=== PATIENT | female | born 1955 | race African-American/Black ===

== ENCOUNTER 2016-11-01 14:34 | Inpatient (IN) | payer OTHER ==
[2016-11-01 15:22] VITALS: BMI 16.2
--- NOTE | 2016-11-01 17:52 | HP ---
Admission [facility] Chief Complaint: I WANT TO GO TO REHAB Allergies/Adverse Reactions: Allergies Allergy/AdvReac Type Severity Reaction Status Date / Time chlorpromazine HCl Allergy Severe Low Blood Verified 11/01/16 17:19 [From Thorazine] Pressure History of Present Illness: 61 YEARS OLD FEMALE WITH LONG HISTORY OF COCAINE DEPENDENCE HAS HIV HYPERTENSION AND CHRONIC BACK PAIN AMBULATE WITH CANE IS ADMITTED TO REHAB Exam Limitations: No Limitations - Ebola screening Have you traveled outside of the country in the last 21 days: No Have you had contact with anyone from an Ebola affected area: No Have you been sick,other than usual withdrawal symptoms: No Do you have a fever: No - Review of Systems Constitutional: Loss of Appetite, Unintentional Wgt. Loss, Unexplained wgt Loss EENT: reports: Dental Problems (MISS[place]) Respiratory: reports: No Symptoms reported Cardiac: reports: No Symptoms Reported GI: reports: Indigestion : reports: Incontinence (PEMPER) Musculoskeletal: reports: Back Pain, Joint Pain (RIGHT LEG), Muscle Weakness ( RIGHT LEG) Integumentary: reports: No Symptoms Reported Neuro: reports: No Symptoms reported Endocrine: reports: No Symptoms Reported Hematology: reports: No Symptoms Reported Psychiatric: reports: Judgement Intact, Mood/Affect Appropiate, Orientated x3 Other Systems: Reviewed and Negative Patient History - Patient Medical History Hx Anemia: No Hx Asthma: No Hx Chronic Obstructive Pulmonary Disease (COPD): No Hx Cancer: No Hx Cardiac Disorders: No Hx Congestive Heart Failure: No Hx Hypertension: No Hx Hypercholesterolemia: No Hx Pacemaker: No HX Cerebrovascular Accident: No Hx Seizures: No Hx Dementia: No Hx Diabetes: No Hx Gastrointestinal Disorders: No Hx Liver Disease: No Hx Genitourinary Disorders: No Hx Sexually Transmitted Disorders: No Hx Renal Disease (ESRD): No Hx Thyroid Disease: No Hx Human Immunodeficiency Virus (HIV): Yes (38 YEARS OLD) Hx Hepatitis C: No Hx Depression: Yes Hx Suicide Attempt: Yes (28 YEARS OLD OVERDOSE) Hx Bipolar Disorder: No Hx Schizophrenia: No - Patient Surgical History Past Surgical History: Yes Hx Neurologic Surgery: No Hx Cataract Extraction: No Hx Cardiac Surgery: No Hx Lung Surgery: No Hx Breast Surgery: No Hx Breast Biopsy: No Hx Abdominal Surgery: No Hx Appendectomy: Yes (CHILD) Hx Cholecystectomy: No Hx Genitourinary Surgery: No Hx Section: No Hx Orthopedic Surgery: Yes (JAW 199'S) Hx Hysterectomy: No Other Surgical History: LYMPHNOTES REMOVAL Anesthesia Reaction: No - PPD History Previous Implant?: Yes Documented Results: Positive w/proof Implanted On Prior [facility] Admission?: No PPD to be Administered?: No - Reproductive History Patient is a Female of Child Bearing Age (11 -55 yrs old): No Patient : No - Smoking Cessation Smoking history: Former smoker Have you smoked in the past 12 months: No Hx Chewing Tobacco Use: No Initiated information on smoking cessation: No - Substance & Tx. History Hx Alcohol Use: No Hx Substance Use: Yes Substance Use Type: Cocaine Hx Substance Use Treatment: Yes () - Substances Abused Cocaine Route: Smoking Frequency: 3-6 times per week Amount used: 200$ Age of first use: 38 Date of Last Use: 10/31/16 Family Disease History - Family Disease History Family Disease History: Heart Disease: Sister (HIV), [place]: Father (BPH), Mother ( ), Brother (), Other: Mother, Sister Admission Physical Exam S - Vital Signs Vital Signs: Vital Signs - 24 hr 11/01/16 15:19 Temperature 97.7 F Pulse Rate 62 Respiratory 20 Rate Blood Pressure 140/82 - Physical General Appearance: Yes: No Apparent Distress, Appropriately Dressed, Thin HEENTM: Yes: Hearing grossly Normal, Normal ENT Inspection, Normocephalic, Normal Voice, Other (TEETH MISSING) Respiratory: Yes: Chest Non-Tender, Lungs Clear, Normal Breath Sounds, No Respiratory Distress, No Accessory Muscle Use Neck: Yes: Supple, Trachea in good position Breast: Yes: Breasts Symetrical Cardiology: Yes: Regular Rhythm, S1, S2, Bradycardia Abdominal: Yes: Normal Bowel Sounds, Non Tender, Soft Genitourinary: Yes: Within Normal Limits Musculoskeletal: Yes: full range of Motion, Gait Steady (CANE), Back pain, Muscle Pain (RIGHT LEG) Extremities: Yes: Normal Inspection (THIN - SMALL FRAME -), Normal Range of Motion, Non-Tender Neurological: Yes: Fully Oriented, Alert, Motor Strength 5/5, Normal Mood/Affect , Normal Response Integumentary: Yes: Warm, Rash (ANUS) Lymphatic: Yes: Within Normal Limits - Diagnostic (1) Cocaine dependence, uncomplicated Current Visit: Yes Status: Acute (2) Positive PPD, treated Current Visit: Yes Status: Resolved (3) HIV (human immunodeficiency virus infection) Current Visit: Yes Status: Chronic (4) Hypertension Current Visit: Yes Status: Chronic Qualifiers: Hypertension type: essential hypertension Qualified Code(s): I10 - Essential (primary) hypertension (5) Chronic back pain Current Visit: Yes Status: Chronic Qualifiers: Back pain location: low back pain Back pain laterality: right Sciatica presence: without sciatica Qualified Code(s): M54.5 - Low back pain; G89.29 - Other chronic pain (6) Use of cane as ambulatory aid Current Visit: Yes Status: Chronic (7) Weight loss Current Visit: Yes Status: Acute (8) Urine incontinence Current Visit: Yes Status: Chronic Qualifiers: Urinary Incontinence type: functional incontinence Qualified Code(s) : R39.81 - Functional urinary incontinence Cleared for Admission [facility] - Detox or Rehab [facility] Level of Care: Observation Bed Detox Regimen/Protocol: Not Applicable Claeared for Rehab Admission: Yes [facility] Breath Alcohol Content Breath Alcohol Content: 0 Urine Pregancy Test - Result Urine Test Results: Negative- NO Line Present Urine Drug Screen - Results Drug Screen Negative: No Urine Drug Screen Results: ELE-Cocaine
[2016-11-01] MEDS ORDERED: P-EPHED 60MG/TRIPROLIDI 2.5MG TABLET PO PRN (18:04)
[2016-11-01] MEDS ORDERED: MAGNESIUM CITRATE 300 ML BOTTLE PO PRN (18:04)
[2016-11-01] MEDS ORDERED: MAGNESIUM HYDROX 2400MG/30ML ORAL SUSPENSION 30 ML CUP PO PRN (18:04)
[2016-11-01] MEDS ORDERED: LOPERAMIDE HCL 2 MG CAPSULE PO PRN (18:04)
[2016-11-01] MEDS ORDERED: MENTHOL/PHENOL 1 EACH UD MM PRN (18:04)
[2016-11-01] MEDS ORDERED: guaiFENesin/D-METHORPHAN HB 10 ML UNIT-DOSE CUPS PO PRN (18:04)
[2016-11-01] MEDS ORDERED: hydrOXYzine PAMOATE 50 MG CAPSULE (FP) PO PRN (18:04)
[2016-11-01] MEDS ORDERED: BACITRACIN 0.9 GM PACKET TP ONE (19:00)
[2016-11-01] MEDS: METHYL SALICYLATE/MENTHOL OINT 30 GM TUBE TP SCH (22:15)
[2016-11-01] MEDS: ASCORBIC ACID 500 MG TABLET (FP) PO SCH (22:16)
[2016-11-01] MEDS: THIAMINE HCL 100 MG TABLET (FP) PO SCH (22:16)
[2016-11-02] MEDS: VITAMIN E 400 INTERNATIONAL-UNITS CAPSULE (FP) PO SCH (07:06)
[2016-11-02] MEDS ORDERED: cloNIDine HCL 0.1 MG TABLET PO ONE (08:00)
--- NOTE | 2016-11-02 09:06 | EKG ---
Test Reason : Blood Pressure : / mmHG Vent. Rate : 082 BPM Atrial Rate : 082 BPM P-R Int : 154 ms QRS Dur : 088 ms QT Int : 386 ms P-R-T Axes : 077 049 -81 degrees QTc Int : 450 ms NORMAL SINUS RHYTHM POSSIBLE LEFT ATRIAL ENLARGEMENT LEFT VENTRICULAR HYPERTROPHY ABNORMAL ECG NO PREVIOUS ECGS AVAILABLE Confirmed by LEIGHA ALVAREZ MD ([id number]) on 11/02/2016 9:05:43 AM Referred By: Sammi Penaloza Confirmed By:LEIGHA ALVAREZ MD
[2016-11-02] MEDS ORDERED: PT OWN MED DRAWER 7, Y5N ONE (09:11)
[2016-11-02 09:51] LABS: MCH 27.2 pg (25.7-33.7); MCHC 31.2 g/dl (32.0-36.0); MEAN PLT VOLUME 8.8 fl (7.5-11.1); PLATELET COUNT 269 K/MM3 (134-434); WHITE BLOOD COUNT 5.4 K/mm3 (4.0-10.0)
[2016-11-02] MEDS: PRENATAL VITAMINS W/ FOLIC ACID TABLET (FP) PO SCH (10:08)
[2016-11-02] MEDS: ASCORBIC ACID 500 MG TABLET (FP) PO SCH ×2 (10:08→21:15)
[2016-11-02] MEDS: NIFEdipine E.R 60 MG TABLET (UD) PO SCH (10:08)
[2016-11-02] MEDS: METHYL SALICYLATE/MENTHOL OINT 30 GM TUBE TP SCH ×2 (10:09→21:14)
[2016-11-02 10:48] LABS: ALBUMIN 2.8 g/dl (3.4-5.0); ANION GAP 5 (8-16); CALCIUM 8.2 mg/dL (8.5-10.1); CO2 30 mmol/L (21-32); GLUCOSE,RANDOM 82 mg/dL (74-106)
[2016-11-02 10:51] LABS: ALK PHOS 103 U/L (45-117); BILIRUBIN,TOTAL 0.2 mg/dL (0.2-1.0); CREATININE 0.8 mg/dL (0.55-1.02); SGOT/AST 26 U/L (15-37); SGPT/ALT 22 U/L (12-78)
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
[2016-11-02] MEDS: SERTRALINE HCL 50 MG TABLET (FP) PO SCH (11:49)
[2016-11-02 13:35] LABS: URINE APPEARANCE CLEAR; URINE BILIRUBIN NEGATIVE (NEGATIVE); URINE BLOOD NEGATIVE (NEGATIVE); URINE COLOR STRAW; URINE GLUCOSE (UA) NEGATIVE (NEGATIVE); URINE KETONE NEGATIVE (NEGATIVE); URINE LEUK ESTERASE NEGATIVE (NEGATIVE); URINE NITRITE NEGATIVE (NEGATIVE); URINE PROTEIN NEGATIVE (NEGATIVE); URINE UROBILINOGEN NEGATIVE mg/dL (0.2-1.0)
[2016-11-02] MEDS: THIAMINE HCL 100 MG TABLET (FP) PO SCH (21:14)
[2016-11-03] MEDS: ACETAMINOPHEN 325 MG TABLET (FP) PO PRN (06:22)
[2016-11-03] MEDS: VITAMIN E 400 INTERNATIONAL-UNITS CAPSULE (FP) PO SCH (07:31)
[2016-11-03] MEDS: NAPROXEN 500 MG TABLET (FP) PO PRN (09:14)
[2016-11-03] MEDS: NIFEdipine E.R 60 MG TABLET (UD) PO SCH (09:14)
[2016-11-03] MEDS: PRENATAL VITAMINS W/ FOLIC ACID TABLET (FP) PO SCH (09:15)
[2016-11-03] MEDS: ASCORBIC ACID 500 MG TABLET (FP) PO SCH ×2 (09:15→21:11)
[2016-11-03] MEDS: SERTRALINE HCL 50 MG TABLET (FP) PO SCH (09:15)
[2016-11-03] MEDS: METHYL SALICYLATE/MENTHOL OINT 30 GM TUBE TP SCH ×2 (09:17→21:12)
[2016-11-03] MEDS ORDERED: PT OWN MED DRAWER 7, Y5N ONE ×3 (09:17→19:21)
--- NOTE | 2016-11-03 09:31 | EKG ---
Test Reason : Blood Pressure : / mmHG Vent. Rate : 064 BPM Atrial Rate : 064 BPM P-R Int : 158 ms QRS Dur : 088 ms QT Int : 404 ms P-R-T Axes : 063 026 268 degrees QTc Int : 416 ms NORMAL SINUS RHYTHM VOLTAGE CRITERIA FOR LEFT VENTRICULAR HYPERTROPHY CANNOT RULE OUT SEPTAL INFARCT , AGE UNDETERMINED T WAVE ABNORMALITY, CONSIDER INFERIOR ISCHEMIA ABNORMAL ECG Confirmed by MD APOORVA, JULIO C ([id number]) on 11/03/2016 9:31:30 AM Referred By: Smami Penaloza Confirmed By:JULIO C GUERIN MD
[2016-11-03] MEDS: THIAMINE HCL 100 MG TABLET (FP) PO SCH (21:11)
[2016-11-03] MEDS: diphenhydrAMINE HCL 50 MG CAPSULE PO PRN (21:13)
[2016-11-04] MEDS: VITAMIN E 400 INTERNATIONAL-UNITS CAPSULE (FP) PO SCH (07:49)
[2016-11-04] MEDS: METHYL SALICYLATE/MENTHOL OINT 30 GM TUBE TP SCH ×2 (09:45→21:04)
[2016-11-04] MEDS: NIFEdipine E.R 60 MG TABLET (UD) PO SCH (09:46)
[2016-11-04] MEDS: SERTRALINE HCL 50 MG TABLET (FP) PO SCH (09:46)
[2016-11-04] MEDS: ASCORBIC ACID 500 MG TABLET (FP) PO SCH ×2 (09:47→21:01)
[2016-11-04] MEDS: PRENATAL VITAMINS W/ FOLIC ACID TABLET (FP) PO SCH (09:47)
[2016-11-04] MEDS ORDERED: PT OWN MED DRAWER 7, Y5N ONE ×2 (19:03→21:04)
[2016-11-04] MEDS: THIAMINE HCL 100 MG TABLET (FP) PO SCH (21:01)
[2016-11-04] MEDS: diphenhydrAMINE HCL 50 MG CAPSULE PO PRN (21:02)
[2016-11-05] MEDS ORDERED: PT OWN MED DRAWER 7, Y5N ONE ×2 (03:21→21:14)
[2016-11-05] MEDS: VITAMIN E 400 INTERNATIONAL-UNITS CAPSULE (FP) PO SCH (07:12)
[2016-11-05] MEDS: NAPROXEN 500 MG TABLET (FP) PO PRN (08:55)
[2016-11-05] MEDS: NIFEdipine E.R 60 MG TABLET (UD) PO SCH (10:03)
[2016-11-05] MEDS: PRENATAL VITAMINS W/ FOLIC ACID TABLET (FP) PO SCH (10:03)
[2016-11-05] MEDS: ASCORBIC ACID 500 MG TABLET (FP) PO SCH ×2 (10:03→21:15)
[2016-11-05] MEDS: SERTRALINE HCL 50 MG TABLET (FP) PO SCH (10:03)
[2016-11-05] MEDS: METHYL SALICYLATE/MENTHOL OINT 30 GM TUBE TP SCH ×2 (10:04→21:15)
[2016-11-05] MEDS: THIAMINE HCL 100 MG TABLET (FP) PO SCH (21:13)
[2016-11-06] MEDS ORDERED: PT OWN MED DRAWER 7, Y5N ONE ×2 (05:53→21:11)
[2016-11-06] MEDS: MAG HYDROX/AL HYDROX/SIMETH 30 ML UNIT-DOSE CUP PO PRN ×2 (06:59→19:04)
[2016-11-06] MEDS: VITAMIN E 400 INTERNATIONAL-UNITS CAPSULE (FP) PO SCH (06:59)
[2016-11-06] MEDS: PRENATAL VITAMINS W/ FOLIC ACID TABLET (FP) PO SCH (09:33)
[2016-11-06] MEDS: ASCORBIC ACID 500 MG TABLET (FP) PO SCH ×2 (09:34→21:11)
[2016-11-06] MEDS: SERTRALINE HCL 50 MG TABLET (FP) PO SCH (09:34)
[2016-11-06] MEDS: NIFEdipine E.R 60 MG TABLET (UD) PO SCH (09:34)
[2016-11-06] MEDS: METHYL SALICYLATE/MENTHOL OINT 30 GM TUBE TP SCH ×2 (09:35→21:12)
[2016-11-06] MEDS: THIAMINE HCL 100 MG TABLET (FP) PO SCH (21:10)
[2016-11-06] MEDS: DOCUSATE SODIUM 100 MG CAPSULE (FP) PO SCH (21:11)
[2016-11-07] MEDS: VITAMIN E 400 INTERNATIONAL-UNITS CAPSULE (FP) PO SCH (07:51)
[2016-11-07] MEDS: PRENATAL VITAMINS W/ FOLIC ACID TABLET (FP) PO SCH (09:54)
[2016-11-07] MEDS: DOCUSATE SODIUM 100 MG CAPSULE (FP) PO SCH ×2 (09:54→21:13)
[2016-11-07] MEDS: SERTRALINE HCL 50 MG TABLET (FP) PO SCH (09:54)
[2016-11-07] MEDS: ASCORBIC ACID 500 MG TABLET (FP) PO SCH ×2 (09:54→21:13)
[2016-11-07] MEDS: MAG HYDROX/AL HYDROX/SIMETH 30 ML UNIT-DOSE CUP PO PRN ×2 (09:56→19:55)
[2016-11-07] MEDS: METHYL SALICYLATE/MENTHOL OINT 30 GM TUBE TP SCH ×2 (09:56→21:14)
[2016-11-07] MEDS: NIFEdipine E.R 60 MG TABLET (UD) PO SCH (09:56)
[2016-11-07] MEDS: THIAMINE HCL 100 MG TABLET (FP) PO SCH (21:13)
[2016-11-08] MEDS: VITAMIN E 400 INTERNATIONAL-UNITS CAPSULE (FP) PO SCH (07:34)
[2016-11-08] MEDS: PRENATAL VITAMINS W/ FOLIC ACID TABLET (FP) PO SCH (10:22)
[2016-11-08] MEDS: NIFEdipine E.R 60 MG TABLET (UD) PO SCH (10:22)
[2016-11-08] MEDS: SERTRALINE HCL 50 MG TABLET (FP) PO SCH (10:22)
[2016-11-08] MEDS: DOCUSATE SODIUM 100 MG CAPSULE (FP) PO SCH ×2 (10:22→21:13)
[2016-11-08] MEDS: ASCORBIC ACID 500 MG TABLET (FP) PO SCH ×2 (10:23→21:13)
[2016-11-08] MEDS: METHYL SALICYLATE/MENTHOL OINT 30 GM TUBE TP SCH ×2 (10:23→21:13)
--- NOTE | 2016-11-08 15:01 | PN ---
[facility] Progress Note Note: Off & on nosebleed, platelets 269,000. BP controlled with procardia xl 60 daily. Vital Signs - 8 hr 11/08/16 11/08/16 07:24 09:03 Temperature 97.9 F Pulse Rate 74 82 Respiratory 18 Rate Blood Pressure 146/84 130/80 Laboratory Tests 11/01/16 11/02/16 11/02/16 07:00 07:00 07:00 WBC 5.4 RBC 4.52 Hgb 12.3 Hct 39.3 MCV 87.0 MCH 27.2 MCHC 31.2 L RDW 14.0 Plt Count 269 MPV 8.8 Sodium 141 Potassium 3.9 Chloride 106 Carbon Dioxide 30 Anion Gap 5 L BUN 11 Creatinine 0.8 Creat Clearance w eGFR > 60 Random Glucose 82 Calcium 8.2 L Total Bilirubin 0.2 AST 26 ALT 22 Alkaline Phosphatase 103 Total Protein 8.0 Albumin 2.8 L Urine Color Urine Appearance Urine pH Ur Specific [place] Urine Protein Urine Glucose (UA) Urine Ketones Urine Blood Urine Nitrite Urine Bilirubin Urine Urobilinogen Ur Leukocyte Esterase RPR Titer Hepatitis C Antibody 6.7 H HCV Quantitation HCV RNA PCR log buffer copper/ml 11/02/16 11/02/16 11/05/16 07:00 08:55 09:45 WBC RBC Hgb Hct MCV MCH MCHC RDW Plt Count MPV Sodium Potassium Chloride Carbon Dioxide Anion Gap BUN Creatinine Creat Clearance w eGFR Random Glucose Calcium Total Bilirubin AST ALT Alkaline Phosphatase Total Protein Albumin Urine Color Straw Urine Appearance Clear Urine pH 8.0 Ur Specific [place] 1.015 Urine Protein Negative Urine Glucose (UA) Negative Urine Ketones Negative Urine Blood Negative Urine Nitrite Negative Urine Bilirubin Negative Urine Urobilinogen Negative Ur Leukocyte Esterase Negative RPR Titer Nonreactive Hepatitis C Antibody HCV Quantitation Hcv not detected HCV RNA PCR log buffer copper/ml TNP labs noted Dx. : Epistaxis P : Nose packing
[2016-11-08] MEDS: THIAMINE HCL 100 MG TABLET (FP) PO SCH (21:12)
[2016-11-08] MEDS: diphenhydrAMINE HCL 50 MG CAPSULE PO PRN (21:12)
[2016-11-08] MEDS ORDERED: PT OWN MED DRAWER 7, Y5N ONE (21:59)
[2016-11-09] MEDS: VITAMIN E 400 INTERNATIONAL-UNITS CAPSULE (FP) PO SCH (07:37)
[2016-11-09] MEDS: ASCORBIC ACID 500 MG TABLET (FP) PO SCH ×2 (09:42→21:24)
[2016-11-09] MEDS: METHYL SALICYLATE/MENTHOL OINT 30 GM TUBE TP SCH ×2 (09:43→21:24)
[2016-11-09] MEDS: DOCUSATE SODIUM 100 MG CAPSULE (FP) PO SCH ×2 (09:43→21:24)
[2016-11-09] MEDS: SERTRALINE HCL 50 MG TABLET (FP) PO SCH (09:43)
[2016-11-09] MEDS: NIFEdipine E.R 60 MG TABLET (UD) PO SCH (09:43)
[2016-11-09] MEDS: PRENATAL VITAMINS W/ FOLIC ACID TABLET (FP) PO SCH (09:43)
[2016-11-09] MEDS: ACETAMINOPHEN 325 MG TABLET (FP) PO PRN ×2 (13:13→19:23)
[2016-11-09] MEDS ORDERED: NIFEdipine E.R. 30 MG TABLET (FP) PO ONE (16:30)
[2016-11-09] MEDS ORDERED: PT OWN MED DRAWER 7, Y5N ONE ×2 (19:34→19:36)
[2016-11-09] MEDS: THIAMINE HCL 100 MG TABLET (FP) PO SCH (21:24)
[2016-11-10] MEDS: VITAMIN E 400 INTERNATIONAL-UNITS CAPSULE (FP) PO SCH (08:31)
[2016-11-10] MEDS: METHYL SALICYLATE/MENTHOL OINT 30 GM TUBE TP SCH ×2 (09:52→21:12)
[2016-11-10] MEDS: DOCUSATE SODIUM 100 MG CAPSULE (FP) PO SCH ×2 (09:52→21:12)
[2016-11-10] MEDS: ASCORBIC ACID 500 MG TABLET (FP) PO SCH ×2 (09:52→21:11)
[2016-11-10] MEDS: PRENATAL VITAMINS W/ FOLIC ACID TABLET (FP) PO SCH (09:52)
[2016-11-10] MEDS: SERTRALINE HCL 50 MG TABLET (FP) PO SCH (09:52)
[2016-11-10] MEDS: NIFEdipine E.R. 90 MG TABLET (FP) PO SCH (10:40)
[2016-11-10] MEDS: NAPROXEN 500 MG TABLET (FP) PO PRN (10:41)
[2016-11-10] MEDS ORDERED: NIFEdipine E.R. 30 MG TABLET (FP) PO ONE (15:10)
[2016-11-10] MEDS: THIAMINE HCL 100 MG TABLET (FP) PO SCH (21:09)
[2016-11-11] MEDS: VITAMIN E 400 INTERNATIONAL-UNITS CAPSULE (FP) PO SCH (07:00)
[2016-11-11] MEDS ORDERED: PT OWN MED DRAWER 7, Y5N ONE ×2 (07:05→21:11)
[2016-11-11] MEDS: DOCUSATE SODIUM 100 MG CAPSULE (FP) PO SCH ×2 (09:42→21:17)
[2016-11-11] MEDS: PRENATAL VITAMINS W/ FOLIC ACID TABLET (FP) PO SCH (09:42)
[2016-11-11] MEDS: NIFEdipine E.R. 90 MG TABLET (FP) PO SCH (09:42)
[2016-11-11] MEDS: SERTRALINE HCL 50 MG TABLET (FP) PO SCH (09:42)
[2016-11-11] MEDS: ASCORBIC ACID 500 MG TABLET (FP) PO SCH ×2 (09:42→21:17)
[2016-11-11] MEDS: METHYL SALICYLATE/MENTHOL OINT 30 GM TUBE TP SCH ×2 (09:43→21:17)
[2016-11-11] MEDS: MAG HYDROX/AL HYDROX/SIMETH 30 ML UNIT-DOSE CUP PO PRN (18:20)
[2016-11-11] MEDS: THIAMINE HCL 100 MG TABLET (FP) PO SCH (21:17)
[2016-11-12] MEDS: VITAMIN E 400 INTERNATIONAL-UNITS CAPSULE (FP) PO SCH (07:31)
[2016-11-12] MEDS: ASCORBIC ACID 500 MG TABLET (FP) PO SCH ×2 (09:54→21:09)
[2016-11-12] MEDS: DOCUSATE SODIUM 100 MG CAPSULE (FP) PO SCH ×2 (09:55→21:09)
[2016-11-12] MEDS: SERTRALINE HCL 50 MG TABLET (FP) PO SCH (09:55)
[2016-11-12] MEDS: PRENATAL VITAMINS W/ FOLIC ACID TABLET (FP) PO SCH (09:56)
[2016-11-12] MEDS: METHYL SALICYLATE/MENTHOL OINT 30 GM TUBE TP SCH ×2 (09:56→21:09)
[2016-11-12] MEDS: NIFEdipine E.R. 90 MG TABLET (FP) PO SCH (09:56)
[2016-11-12] MEDS: MAG HYDROX/AL HYDROX/SIMETH 30 ML UNIT-DOSE CUP PO PRN ×2 (15:33→21:27)
[2016-11-12] MEDS: THIAMINE HCL 100 MG TABLET (FP) PO SCH (21:09)
[2016-11-13] MEDS: VITAMIN E 400 INTERNATIONAL-UNITS CAPSULE (FP) PO SCH (07:13)
[2016-11-13] MEDS ORDERED: PT OWN MED DRAWER 7, Y5N ONE (08:33)
[2016-11-13] MEDS: ASCORBIC ACID 500 MG TABLET (FP) PO SCH ×2 (09:50→21:30)
[2016-11-13] MEDS: PRENATAL VITAMINS W/ FOLIC ACID TABLET (FP) PO SCH (09:50)
[2016-11-13] MEDS: DOCUSATE SODIUM 100 MG CAPSULE (FP) PO SCH ×2 (09:50→21:30)
[2016-11-13] MEDS: SERTRALINE HCL 50 MG TABLET (FP) PO SCH (09:50)
[2016-11-13] MEDS: METHYL SALICYLATE/MENTHOL OINT 30 GM TUBE TP SCH ×2 (09:51→21:31)
[2016-11-13] MEDS: NIFEdipine E.R. 90 MG TABLET (FP) PO SCH (09:51)
[2016-11-13] MEDS: THIAMINE HCL 100 MG TABLET (FP) PO SCH (21:30)
[2016-11-13] MEDS: diphenhydrAMINE HCL 50 MG CAPSULE PO PRN (21:31)
[2016-11-13] MEDS: MAG HYDROX/AL HYDROX/SIMETH 30 ML UNIT-DOSE CUP PO PRN (21:33)
[2016-11-14] MEDS ORDERED: PT OWN MED DRAWER 7, Y5N ONE ×2 (03:28→23:09)
[2016-11-14] MEDS ORDERED: cloNIDine HCL 0.1 MG TABLET PO ONE (06:45)
[2016-11-14] MEDS: VITAMIN E 400 INTERNATIONAL-UNITS CAPSULE (FP) PO SCH (07:17)
[2016-11-14] MEDS: PRENATAL VITAMINS W/ FOLIC ACID TABLET (FP) PO SCH (09:56)
[2016-11-14] MEDS: NIFEdipine E.R. 90 MG TABLET (FP) PO SCH (09:56)
[2016-11-14] MEDS: DOCUSATE SODIUM 100 MG CAPSULE (FP) PO SCH ×2 (09:56→21:10)
[2016-11-14] MEDS: METHYL SALICYLATE/MENTHOL OINT 30 GM TUBE TP SCH ×2 (09:56→21:10)
[2016-11-14] MEDS: SERTRALINE HCL 50 MG TABLET (FP) PO SCH (09:57)
[2016-11-14] MEDS: ASCORBIC ACID 500 MG TABLET (FP) PO SCH ×2 (09:57→21:11)
[2016-11-14] MEDS: THIAMINE HCL 100 MG TABLET (FP) PO SCH (21:10)
[2016-11-14] MEDS: diphenhydrAMINE HCL 50 MG CAPSULE PO PRN (21:11)
[2016-11-15] MEDS ORDERED: PT OWN MED DRAWER 7, Y5N ONE (03:15)
[2016-11-15] MEDS ORDERED: cloNIDine HCL 0.1 MG TABLET PO ONE (06:26)
[2016-11-15 06:49] VITALS: TEMP 98.5
[2016-11-15] MEDS: VITAMIN E 400 INTERNATIONAL-UNITS CAPSULE (FP) PO SCH (07:55)
[2016-11-15 09:41] VITALS: BP 100/66; PULSE 70
[2016-11-15] MEDS: PRENATAL VITAMINS W/ FOLIC ACID TABLET (FP) PO SCH (09:45)
[2016-11-15] MEDS: SERTRALINE HCL 50 MG TABLET (FP) PO SCH (09:45)
[2016-11-15] MEDS: DOCUSATE SODIUM 100 MG CAPSULE (FP) PO SCH (09:45)
[2016-11-15] MEDS: ASCORBIC ACID 500 MG TABLET (FP) PO SCH (09:46)
[2016-11-15] MEDS: NIFEdipine E.R. 90 MG TABLET (FP) PO SCH (09:46)
[2016-11-15] MEDS: METHYL SALICYLATE/MENTHOL OINT 30 GM TUBE TP SCH (09:46)
[2016-11-15] MEDS: MAG HYDROX/AL HYDROX/SIMETH 30 ML UNIT-DOSE CUP PO PRN (09:56)
--- NOTE | 2016-11-15 10:51 | PN ---
[facility] Progress Note Note: Patient completed this program today 11/15/16.She has met short term treatment goals and will continue to address her issues on outpatient basis .Patient identifies areas of difficulties and behaviors which contribute to relapse,as well as support,coping skills she can utilize to maintain recovery.Patient will continue Zoloft 50 mg po daily.Script for 30 days provided.Patient is stable for discharge today 11/15/16.
== END 2016-11-15 12:30 | disposition home or self-care (01) | DRG 772 ==
LOC: YASAS 14:34 → Y3E 20:18
PROVIDERS: ADMIT Psychiatry & Neurology Psychiatry; ATTEND Psychiatry & Neurology Psychiatry
PROC: HZ42ZZZ Group Counseling for Substance Abuse Treatment, Cognitive-Behavioral (ICD-10-PCS; principal; 2016-11-01)
DX: F14.20 Cocaine dependence, uncomplicated (principal); F19.24 Other psychoactive substance dependence with psychoactive substance-induced mood disorder; Z21 Asymptomatic human immunodeficiency virus [HIV] infection status; I10 Essential (primary) hypertension; R39.81 Functional urinary incontinence; M54.5 Low back pain; G89.29 Other chronic pain; R76.11 Nonspecific reaction to tuberculin skin test without active tuberculosis; R63.4 Abnormal weight loss; Z68.1 Body mass index [BMI] 19.9 or less, adult; R26.89 Other abnormalities of gait and mobility; Z99.89 Dependence on other enabling machines and devices
CPT/HCPCS: 36415; 71020-TC; 80053; 81003; 85027; 86593; 86803; 87522; 93005; 93010